=== PATIENT | female | born 1990 | race Caucasian/White ===

== ENCOUNTER 2017-05-18 17:42 | Emergency (ER) | payer MEDICAID, OTHER ==
[2017-05-18] MEDS ORDERED: Penicillin V Potassium 500 MG Tab PO ONE (18:30)
[2017-05-18] MEDS ORDERED: Ketorolac 30 MG/ML SDV IM ONE (18:32)
--- NOTE | 2017-05-18 18:45 | EDM.PDOC ---
ED HPI GENERAL MEDICAL PROBLEM - General Chief Complaint: ENT Problem Stated Complaint: TOOTHACHE Time Seen by Provider: 05/18/17 18:23 Source of Information: Reports: Patient History Limitations: Reports: No Limitations - History of Present Illness INITIAL COMMENTS - FREE TEXT/NARRATIVE: HISTORY AND PHYSICAL: History of present illness: [26-year-old female with no significant past history now presents emergency department complaining of right upper toothache. Patient states her tooth is bothering her for several days. Is the most posterior molar right upper. She has no facial swelling fevers chills sweats or shaking chills. No headache or stiff neck. Patient has not seen a dentist recently. She is not currently on antibiotics] Review of systems: As per history of present illness and below otherwise all systems reviewed and negative. Past medical history: As per history of present illness and as reviewed below otherwise noncontributory. Surgical history: As per history of present illness and as reviewed below otherwise noncontributory. Social history: No reported history of drug or alcohol abuse. Family history: As per history of present illness and as reviewed below otherwise noncontributory. Physical exam: Well-appearing patient distress mild tenderness with percussion of #2. No soft tissue swelling drainage or mass. Normal intraoral and oropharyngeal exams. Supple neck no cervical adenopathy clear lungs regular rate and rhythm no tachycardia with no murmur HEENT: Normocephalic, atraumatic, pupils normal and symmetrical, supple neck, no meningismus, normal color Lungs: Normal and symmetrical chest wall excursion bilateral with no tachypnea or increased work of breathing, grossly normal chest exam Heart: No tachycardia in triage Abdomen: Normal-appearing, nondistended, no visible mass or asymmetry Pelvis: Normal-appearing Genitourinary: Deferred Rectal exam: Deferred Extremities: Atraumatic, normal use and range of motion, no visible evidence of gross neurovascular compromise Neuro: Awake, alert, oriented. Normal and appropriate mental status. Cranial nerves grossly unremarkable. Motor function normal. Nonfocal neurologic exam. Diagnostics: [] Therapeutics: [] Impression: [Toothache] Plan: [Patient with toothache. Normal-appearing tooth with no visible cavity and no evidence of abscess or soft tissue swelling. Dose of penicillin given in ED as well as Toradol IM. Patient aware to take penicillin as prescribed and finish prescription at home following up with dentist in 2 days. She will use ibuprofen and Tylenol as needed for pain. Patient agrees with outpatient follow- up and strict return precautions given] Definitive disposition and diagnosis as appropriate pending reevaluation and review of above. Tooth/Teeth Pain Score (Numeric/FACES): 8 - Related Data Allergies Allergy/AdvReac Type Severity Reaction Status Date / Time No Known Allergies Allergy Verified 05/18/17 18:20 Home Meds: Home Meds . [No Known Home Meds] 05/18/17 [History] Past Medical History - Past Health History Medical/Surgical History: Denies Medical/Surgical History Social & Family History - Family History Family Medical History: Noncontributory - Tobacco Use Smoking Status *Q: Current Every Day Smoker Years of Tobacco use: 10 Packs/Tins Daily: 0.5 - Recreational Drug Use Recreational Drug Use: No ED ROS GENERAL - Review of Systems Review Of Systems: See Below (History of present illness) ED EXAM, GENERAL - Physical Exam Exam: See Below (History of present illness) Course - Vital Signs Last Recorded V/S: Last Vital Signs Temp 36.6 C 05/18/17 18:18 Pulse 107 H 05/18/17 18:18 Resp 18 05/18/17 18:18 BP 132/99 H 05/18/17 18:18 Pulse Ox 100 05/18/17 18:18 - Orders/Labs/Meds Meds: Medications Discontinued Medications Generic Name Dose Route Start Last Admin Trade Name Freq PRN Reason Stop Dose Admin Ketorolac Tromethamine 30 mg 05/18/17 18:32 Toradol IM 05/18/17 18:33 ONETIME ONE Penicillin V Potassium 500 mg 05/18/17 18:30 Veetids PO 05/18/17 18:31 ONETIME ONE Departure - Departure Time of Disposition: 18:43 Disposition: Home, Self-Care 01 Condition: Good Clinical Impression: Toothache, Dentalgia - Discharge Information Referrals: PCP,None [Primary Care Provider] - Forms: ED Department Discharge Additional Instructions: You have a toothache. It is possible this is from a dental infection so we have prescribed penicillin and antibiotic. Finish penicillin 4 times a day for 10 days as prescribed. Follow-up with her dentist in 2 days. Take ibuprofen 600 mg every 6 hours as well as Tylenol every 4 hours as needed for pain. Follow-up with your doctor or the dentist if further pain control is necessary.
[2017-05-18 19:18] VITALS: BP 127/94
== END 2017-05-18 19:20 | disposition home or self-care (01) ==
LOC: MW.ED 17:42
DX: K08.89 Other specified disorders of teeth and supporting structures (principal); F17.210 Nicotine dependence, cigarettes, uncomplicated
CPT/HCPCS: 96372; 99282; A9270; J1885

== ENCOUNTER 2017-06-15 10:31 | Emergency (ER) | payer MEDICAID ==
[2017-06-15] MEDS ORDERED: Ketorolac 30 MG/ML SDV IVPUSH ONE (11:05)
[2017-06-15] MEDS ORDERED: Metoclopramide 10 MG/2 ML SDV IV ONE (11:05)
[2017-06-15] MEDS ORDERED: Ondansetron 4 MG/2 ML SDV IVPUSH ONE (11:05)
[2017-06-15] MEDS ORDERED: Sodium Chloride 0.9% 1,000 ML IV ONE (11:05)
[2017-06-15] MEDS ORDERED: diphenhydrAMINE 50 MG/ML SDV IVPUSH ONE (11:08)
--- NOTE | 2017-06-15 11:22 | EDM.PDOC ---
ED HPI GENERAL MEDICAL PROBLEM - General Chief Complaint: Headache Stated Complaint: MIGRAINE Time Seen by Provider: 06/15/17 10:32 Source of Information: Reports: Patient History Limitations: Reports: No Limitations - History of Present Illness INITIAL COMMENTS - FREE TEXT/NARRATIVE: HISTORY AND PHYSICAL: History of present illness: [Patient comes to the emergency room complaining of a migraine headache. She woke up with this headache yesterday morning and has continued into today. She has a history of migraine headaches for the past 6 months which are usually associated with her periods. Within the past couple of months she was switched from Depo-Provera to oral control and has been having period-like bleeding and cramping every other week. She describes a pounding pain throughout her entire head which she rates at 7 out of 10. States that her pain today is the most intense it has ever been. Her symptoms have not changed from prior headaches other than the intensity. Admits to photophobia and phonophobia. She has had nausea with previous headaches but none today. Excedrin has not alleviated this headache. She is concerned that her headaches do not seem to be responding to [id number] medications any more. She does not have insurance at this time and has not been able to follow-up with a local OB regarding her irregular periods. She plans to move back to her home town in [place] in September and will follow-up with her [employer] at that time. Denies fever and chill abdominal pain, chest pain shortness of breath difficulty breathing runny nose blurred vision double vision and difficulty breathing. No change in bowel or bladder. Patient smokes daily.] Review of systems: As per history of present illness and below otherwise all systems reviewed and negative. Past medical history: As per history of present illness and as reviewed below otherwise noncontributory. Surgical history: As per history of present illness and as reviewed below otherwise noncontributory. Social history: No reported history of drug or alcohol abuse. Family history: As per history of present illness and as reviewed below otherwise noncontributory. Physical exam: Gen.: Well-developed well-nourished female in no acute distress. HEENT: Atraumatic, normocephalic. Nontender with palpation. PERRLA. EOMI. TMs are pearly santa without erythema bilaterally. Nares patent no discharge. Oral mucous membranes are pink and moist without tonsillar swelling erythema or exudate. Ophthalmic exam reveals no abnormalities. neck supple, nontender. Lungs: Clear to auscultation, breath sounds equal bilaterally. Heart: S1S2, regular rate and rhythm., negative for clicks, rubs, or JVD. Abdomen: Soft, nondistended, nontender. Negative for masses guarding or rebound. Pelvis: Stable nontender. Genitourinary: Deferred. Rectal: Deferred. Extremities: Atraumatic, negative for cords or calf pain. Neurovascular unremarkable. Neuro: Awake, alert, oriented. Cranial nerves II through XII unremarkable. Cerebellum unremarkable. Motor and sensory unremarkable throughout. Exam nonfocal. Diagnostics: [Head CT without contrast, urine ] Therapeutics: [1 L normal saline, Toradol 30 mg IV, Reglan 10 mg IV, Zofran 4 mg IV, Benadryl 50mg IV Impression: [headache] Plan: [Negative test. CT of head is normal. Her pain is improved with medications. Encouraged patient to establish care with a local PCP to discuss migraines or follow up with local health department for GENERAL INTERNAL MEDICINE DOCTOR exam and to discuss irregular periods. Encouraged her to continue [id number] anti- inflammatories and analgesics as needed for headaches. Strict return precautions are reviewed with the patient. She is in agreement with today's plan. All of her questions are answered and concerns are addressed.] Definitive disposition and diagnosis as appropriate pending reevaluation and review of above. - Related Data Allergies Allergy/AdvReac Type Severity Reaction Status Date / Time No Known Allergies Allergy Verified 05/18/17 18:20 Home Meds: Home Meds Penicillin V Potassium [IJP: Penicillin V Potassium] 500 mg PO .EVERY 6 HOURS # 40 tab 05/18/17 [Rx] Past Medical History - Past Health History Medical/Surgical History: Denies Medical/Surgical History Social & Family History - Family History Family Medical History: Noncontributory - Tobacco Use Smoking Status *Q: Current Every Day Smoker Years of Tobacco use: 10 Packs/Tins Daily: 0.5 - Recreational Drug Use Recreational Drug Use: No ED ROS GENERAL - Review of Systems Review Of Systems: ROS reveals no pertinent complaints other than HPI. - Physical Exam Exam: See Below Course - Orders/Labs/Meds Orders: Active Orders 24 hr Category Date Time Status Head wo Cont [CT] Stat Exams 06/15/17 11:05 Taken Labs: Laboratory Tests 06/15/17 Range/Units 11:45 Urine HCG, Qual NEGATIVE (NEGATIVE) Meds: Medications Discontinued Medications Generic Name Dose Route Start Last Admin Trade Name Francis PRN Reason Stop Dose Admin Diphenhydramine HCl 50 mg 06/15/17 11:08 06/15/17 11:28 Benadryl IVPUSH 06/15/17 11:09 50 mg ONETIME ONE Administration Sodium Chloride 1,000 mls @ 999 mls/hr 06/15/17 11:05 06/15/17 11:21 Normal Saline IV 06/15/17 12:05 999 mls/hr STAT ONE Administration Ketorolac Tromethamine 30 mg 06/15/17 11:05 06/15/17 11:26 Toradol IVPUSH 06/15/17 11:06 30 mg ONETIME ONE Administration Metoclopramide HCl 10 mg 06/15/17 11:05 06/15/17 11:24 Reglan IV 06/15/17 11:06 10 mg ONETIME ONE Administration Ondansetron HCl 4 mg 06/15/17 11:05 06/15/17 11:21 Zofran IVPUSH 06/15/17 11:06 4 mg ONETIME ONE Administration Departure - Departure Time of Disposition: 13:00 Disposition: Home, Self-Care 01 Condition: Good Clinical Impression: Headache - Discharge Information Referrals: PCP,Not In Area [Primary Care Provider] - Forms: ED Department Discharge Additional Instructions: The following information is given to patients seen in the emergency department who are being discharged to home. This information is to outline your options for follow-up care. We provide all patients seen in our emergency department with a follow-up referral. The need for follow-up, as well as the timing and circumstances, are variable depending upon the specifics of your emergency department visit. If you don't have a primary care physician on staff, we will provide you with a referral. We always advise you to contact your personal physician following an emergency department visit to inform them of the circumstance of the visit and for follow-up with them and/or the need for any referrals to a consulting specialist. The emergency department will also refer you to a specialist when appropriate. This referral assures that you have the opportunity for follow-up care with a specialist. All of these measure are taken in an effort to provide you with optimal care, which includes your follow-up. Under all circumstances we always encourage you to contact your private physician who remains a resource for coordinating your care. When calling for follow-up care, please make the office aware that this follow-up is from your recent emergency room visit. If for any reason you are refused follow-up, please contact the [facility] emergency department at and asked to speak to the emergency department charge nurse. [facility] [address] [place] [id number] [facility] [address] [facility], [address] [place] [address] Establish care with a local primary care provider at the first clinic listed above 1 you have insurance Follow-up at the above listed health unit for well woman exam. Tylenol or ibuprofen as needed for discomfort. Return to ER as needed as discussed. - My Orders Last 24 Hours: My Active Orders 06/15/17 11:05 Head wo Cont [CT] Stat - Assessment/Plan Last 24 Hours: My Active Orders 06/15/17 11:05 Head wo Cont [CT] Stat
[2017-06-16 07:34] VITALS: BP 110/75
--- NOTE | 2017-06-17 11:44 | CT ---
EXAM DATE: 06/15/17 PATIENT'S AGE: 26 Patient: RAMBO TENORIO Facility: [place], [place] Site . Site : 1990 Study: CT Head [id number] 12:44:52 PM Ordering Physician: Doctor Skelton Final Report: INDICATION : Headache. TECHNIQUE : Noncontrast CT scan of brain. FINDINGS : No acute intra or extra-axial hemorrhage. The ventricles and sulci are normal size, shape and configuration. No visualized intracranial mass or additional abnormal attenuation. Bony calvarium is intact. IMPRESSION : Unremarkable noncontrast CT scan of the brain. No visualized acute intracranial radiographic abnormality. Please note that all CT scans at this facility use dose modulation, iterative reconstruction, and/or weight-based dosing when appropriate to reduce radiation dose to as low as reasonably achievable. Dictated by Srinivas Aguirre MD @ Jun 15 2017 12:50PM (Electronic Signature) Report Signed by Proxy. USMAN
== END 2017-06-15 13:17 | disposition home or self-care (01) ==
LOC: MW.ED 10:31
DX: R51 Headache (principal); F17.210 Nicotine dependence, cigarettes, uncomplicated
CPT/HCPCS: 70450; 81025; 96361; 96374; 96375; 99284; J1200; J1885; J2405; J2765; J7040; 99283